=== PATIENT | female | born 1970 | race Caucasian/White ===

== ENCOUNTER → 2022-02-12 | Outpatient (CLI) | payer BC ==
--- NOTE | 2022-02-12 11:12 | KCIC ---
Bilateral diagnostic digital mammograms with 3-D tomosynthesis: Reason for examination: Left breast pain radiating from the region of the pacemaker into the axilla f or 3 months. Comparison is made to previous studies dated 06/14/2014 and 03/23/2012. Bilateral mammograms in CC and oblique projections were obtained with 2-D imaging and 3-D tomosynthes is imaging on a Siemens Inspiration unit and reviewed on the workstation. Interpretation was made wit h the benefit of CAD. The skin and nipples show no abnormalities. No abnormal axillary lymph nodes are seen. The breast par enchyma is heterogeneously dense. (Breast density: Category C.) There is some mild nodular parenchyma l asymmetry posterior laterally in the right breast seen best on CC view around the 9:00. There are s mall intramammary lymph nodes again seen which are stable. No focal abnormality in the area of clinic al concern in the left breast. There are no other dominant masses, suspicious calcifications or archi tectural distortion. Impression: Nodular asymmetry posterior laterally at approximately the 9:00 C position of the right breast. No focal abnormality in the area of clinical concern the left breast. Ultrasound to follow. Your patient's mammogram demonstrates that she has dense breast tissue (breast density category C or D), which could hide abnormalities, and if she has other risk factors for breast cancer that have bee n identified, she might benefit from supplemental screening tests that may be suggested by you as her ordering physician. Dense breast tissue, in and of itself, is a relatively common condition. Therefo re, this information is not provided to cause undue concern, but rather to raise your awareness and t o promote discussion with your patient regarding the presence of other risk factors, in addition to d ense breast tissue. Your patient's mammography results will be sent to her. BI-RAD Category 0: Incomplete. Needs additional imaging evaluation. Bilateral breast ultrasound: Ultrasound examination of the breasts and axilla was performed bilaterally. In the right breast, there is a small 6 mm cystic/fibrocystic nodule at the 9:00 position 5.5 cm from the nipple. No suspicious abnormalities are seen. No abnormal appearing lymph nodes are seen in the right axilla. In the left breast in the area of clinical concern at the 1:00 position 8 cm from the nipple, there i s no focal abnormality seen. No abnormal appearing lymph nodes are seen in the left axilla. IMPRESSION: No suspicious abnormalities seen in either breast. Recommend routine mammographic follow-up. BI-RADS Category 2: Benign. "Our facility is accredited by the [employer] Mammography [employer]." This patient's information has been entered into a reminder system for the patient to be notified wit h the results of her examination and a target date for the next mammogram. Electronically signed by: Celena Sher MD (02/12/2022 11:09 AM) [id number]
--- NOTE | 2022-02-13 09:10 | KCIC ---
CC: MARYSOL SAMUEL ~ Bilateral diagnostic digital mammograms with 3-D tomosynthesis: Reason for examination: Left breast pain radiating from the region of the pacemaker into the axilla for 3 months. Comparison is made to previous studies dated 06/14/2014 and 03/23/2012. Bilateral mammograms in CC and oblique projections were obtained with 2-D imaging and 3-D tomosynthesis imaging on a Siemens Inspiration unit and reviewed on the workstation. Interpretation was made with the benefit of CAD. The skin and nipples show no abnormalities. No abnormal axillary lymph nodes are seen. The breast parenchyma is heterogeneously dense. (Breast density: Category C.) There is some mild nodular parenchymal asymmetry posterior laterally in the right breast seen best on CC view around the 9:00. There are small intramammary lymph nodes again seen which are stable. No focal abnormality in the area of clinical concern in the left breast. There are no other dominant masses, suspicious calcifications or architectural distortion. Impression: Nodular asymmetry posterior laterally at approximately the 9:00 C position of the right breast. No focal abnormality in the area of clinical concern the left breast. Ultrasound to follow. Your patient's mammogram demonstrates that she has dense breast tissue (breast density category C or D), which could hide abnormalities, and if she has other risk factors for breast cancer that have been identified, she might benefit from supplemental screening tests that may be suggested by you as her ordering physician. Dense breast tissue, in and of itself, is a relatively common condition. Therefore, this information is not provided to cause undue concern, but rather to raise your awareness and to promote discussion with your patient regarding the presence of other risk factors, in addition to dense breast tissue. Your patient's mammography results will be sent to her. BI-RAD Category 0: Incomplete. Needs additional imaging evaluation. Bilateral breast ultrasound: Ultrasound examination of the breasts and axilla was performed bilaterally. In the right breast, there is a small 6 mm cystic/fibrocystic nodule at the 9:00 position 5.5 cm from the nipple. No suspicious abnormalities are seen. No abnormal appearing lymph nodes are seen in the right axilla. In the left breast in the area of clinical concern at the 1:00 position 8 cm from the nipple, there is no focal abnormality seen. No abnormal appearing lymph nodes are seen in the left axilla. IMPRESSION: No suspicious abnormalities seen in either breast. Recommend routine mammographic follow-up. BI-RADS Category 2: Benign. "Our facility is accredited by the [employer] Mammography [employer]." This patient's information has been entered into a reminder system for the patient to be notified with the results of her examination and a target date for the next mammogram. Electronically signed by: Celena Sher MD (02/12/2022 11:09 AM) [id number]
== END ==
LOC: KCIC MAMMO 09:23
PROVIDERS: ATTEND Internal Medicine
DX: N64.4 Mastodynia (principal); N63.11 Unspecified lump in the right breast, upper outer quadrant
CPT/HCPCS: 76641; 77066; G0279; 77062